=== PATIENT | female | born 1980 | race Caucasian/White ===

== ENCOUNTER 2022-09-25 13:58 | Outpatient (CLI) | payer OTHER, SELFPAY ==
[2022-09-25 13:16] LABS: Chloride* 100 mmol/L (96-114); Potassium* 3.9 mmol/L (3.6-5.1); Sodium* 136 mmol/L (135-149)
[2022-09-25 13:19] LABS: Blood Urea Nitrogen* 11 mg/dL (5-24); Carbon Dioxide* 28 mmol/L (20-32); Cholesterol* 213 mg/dL (90-199); Creatinine* 0.8 mg/dL (0.5-1.5); Estimated Glomerular Filt Rate 94 ml/min
[2022-09-25 13:20] LABS: Calcium* 9.1 mg/dL (8.4-10.6); Glucose* 98 mg/dL (60-115); HDL Cholesterol* 48 mg/dL (>=50); LDL Cholesterol Calculated 133 mg/dL (<100); Triglycerides* 158 mg/dL (40-149)
== END 2022-09-25 13:59 | disposition home or self-care (01) ==
PROVIDERS: PCP Family Medicine; Visit Provider Nurse Practitioner Family
DX: Z00.00 Encounter for general adult medical examination without abnormal findings (principal); F41.9 Anxiety disorder, unspecified; Z13.6 Encounter for screening for cardiovascular disorders; Z13.29 Encounter for screening for other suspected endocrine disorder
CPT/HCPCS: 80048; 80061; 84443

== ENCOUNTER 2024-03-10 09:39 | Outpatient (CLI) | payer OTHER, SELFPAY | END 2024-03-10 09:40 | disposition home or self-care (01) | LOC: NFLDREF 03-13 07:58 | PROVIDERS: PCP Family Medicine; Referring Provider Family Medicine; Visit Provider Family Medicine | DX: I49.9 Cardiac arrhythmia, unspecified (principal); E66.9 Obesity, unspecified; R53.83 Other fatigue; E78.00 Pure hypercholesterolemia, unspecified | CPT/HCPCS: 80053; 80061; 84443 ==

== ENCOUNTER 2025-01-12 07:51 | Outpatient (CLI) | payer OTHER, SELFPAY ==
--- NOTE | 2025-01-12 07:45 | CRLHL7_ITS ---
For Patients: As a result of the Cures Act, medical imaging exams and procedure reports are released immediately into your electronic medical record. You may view this report before your referring provider. If you have questions, please contact your health care provider. BILATERAL SCREENING MAMMOGRAM WITH COMPUTER-AIDED DETECTION AND TOMOSYNTHESIS TECHNIQUE: CC and MLO views were obtained. These mammographic images have been obtained using full-field digital technique. These mammographic images were interpreted with the benefit of computer-aided detection. Breast Tomosynthesis was used in this interpretation. COMPARISON FILM: 04/16/23, 01/05/20. FINDINGS: The breasts are almost entirely fatty IMPRESSION: There is no radiographic evidence for malignancy. ASSESSMENT: BI-RADS Category 1: Negative RECOMMENDATION: Routine screening mammogram in 1 year. A lay language report of this examination will be provided to the patient. Marty Moreno M.D. Diagnostic Radiologist [email or web address] Transcribed: 2:28 p.shira marin/Dictated by: Marty Moreno MD @ 01/16/2025 12:57:00 PM (Electronically Signed)
== END 2025-01-12 07:52 | disposition home or self-care (01) ==
LOC: MAMMO 07:52
PROVIDERS: PCP Family Medicine; Visit Provider Family Medicine
DX: Z12.31 Encounter for screening mammogram for malignant neoplasm of breast (principal)
CPT/HCPCS: 77063; 77067

== ENCOUNTER 2025-02-19 08:22 | Outpatient (CLI) | payer OTHER, SELFPAY ==
--- NOTE | 2025-02-19 09:44 | P.ANES_ITS ---
Anesthesia Charges Start Date/Time Anesthesia Start Date: 02/19/25 Anesthesia Start Time: 09:04 Stop Date/Time Anesthesia Stop Date: 02/19/25 Anesthesia Stop Time: 09:43 Coding CPT Codes CPT Codes: ANES UPR LWR GI NDSC PX - 05777 ([id number]) P3 - PATIENT W/SEVERE SYS DISEASE, QZ - OIL INSPECTOR SVC W/O FORMING MACHINE OPERATOR BY
--- NOTE | 2025-02-19 09:44 | W.ANESCHARGE ---
Anesthesia Charges Start Date/Time Anesthesia Start Date: 02/19/25 Anesthesia Start Time: 09:04 Stop Date/Time Anesthesia Stop Date: 02/19/25 Anesthesia Stop Time: 09:43 Coding CPT Codes CPT Codes: ANES UPR LWR GI NDSC PX - 55996 ([id number]) P3 - PATIENT W/SEVERE SYS DISEASE, QZ - ELECTRICAL PANEL BUILDER SVC W/O LOSS CONTROL REPRESENTATIVE BY
== END 2025-02-19 08:23 | disposition home or self-care (01) ==
LOC: OP CLINIC 08:23
PROVIDERS: PCP Family Medicine; Visit Provider Internal Medicine
DX: Z12.11 Encounter for screening for malignant neoplasm of colon (principal); R10.13 Epigastric pain
CPT/HCPCS: 00813; 43239; 45378; 88305; J2704; J3490

== ENCOUNTER 2025-07-06 08:30 | Outpatient (CLI) | payer OTHER, SELFPAY | END 2025-07-06 08:31 | disposition home or self-care (01) | LOC: NFLDREF 07-10 17:49 | PROVIDERS: PCP Family Medicine; Referring Provider Family Medicine; Visit Provider Family Medicine | DX: E78.5 Hyperlipidemia, unspecified (principal); I10 Essential (primary) hypertension; R73.03 Prediabetes; R53.83 Other fatigue | CPT/HCPCS: 80053; 80061; 84443 ==